=== PATIENT | male | born 1950 | race Caucasian/White ===

== ENCOUNTER → 2022-10-25 13:11 | Outpatient (BNVA) | payer MEDICARE, SELFPAY | PROVIDERS: Visit Provider Podiatrist Foot & Ankle Surgery | DX: B35.1 Tinea unguium (principal); M20.42 Other hammer toe(s) (acquired), left foot; I73.9 Peripheral vascular disease, unspecified; M21.612 Bunion of left foot | CPT/HCPCS: 11721; 99203 ==

== ENCOUNTER → 2023-12-08 14:56 | Outpatient (BNVA) | payer MEDICARE, SELFPAY | PROVIDERS: Visit Provider Podiatrist Foot & Ankle Surgery | DX: B35.1 Tinea unguium (principal); M20.42 Other hammer toe(s) (acquired), left foot; I73.9 Peripheral vascular disease, unspecified; M21.612 Bunion of left foot | CPT/HCPCS: 11721; 99213 ==

== ENCOUNTER → 2024-05-17 13:14 | Outpatient (BNVA) | payer MEDICARE, SELFPAY | PROVIDERS: Visit Provider Podiatrist Foot & Ankle Surgery | DX: I73.9 Peripheral vascular disease, unspecified (principal); B35.1 Tinea unguium; M20.42 Other hammer toe(s) (acquired), left foot; M21.619 Bunion of unspecified foot | CPT/HCPCS: 11721 ==